=== PATIENT | female | born 1985 | race African-American/Black ===

== ENCOUNTER → 2016-11-14 | Outpatient (CLI) | payer MEDICARE, MEDICAID ==
[~2016-11-14] MED LIST: CHOL1CAP6 PO; IRONCAP2 PO; ONDA4; PROBCAP4 PO; PROM25TA5 PO; PROT40TA PO
== END ==
LOC: HPND 09:24
DX: O36.8990 Maternal care for other specified fetal problems, unspecified trimester, not applicable or unspecified (principal); G70.00 Myasthenia gravis without (acute) exacerbation; Z3A.32 32 weeks gestation of pregnancy
CPT/HCPCS: 76816